=== PATIENT | female | born 1985 | race Caucasian/White ===

== ENCOUNTER 2017-05-19 19:30 | Emergency (ER) | payer MEDICAID ==
[~2017-05-19] VITALS: Ht 160 cm; Wt 89.8 kg
--- NOTE | 2017-05-19 20:35 | NUR ---
Patient to ER bed 4 to gown for evaluation. Side rails up. Report given to EMILIE.
--- NOTE | 2017-05-19 20:36 | NUR ---
Patient AAO x 4, 25 weeks , presented to ED c/o cough and wheezing x 1 day. Patient afebrile. Patient denies chest pain, N&V. FHR 156. Patient VSS. Will continue to monitor.
--- NOTE | 2017-05-19 20:40 | NUR ---
JORDYN Mccullough at bedside examining patient.
[2017-05-19] MEDS ORDERED: IPRATROPIUM/ALBUTEROL SULFATE 3 ML AMPUL.NEB INH ONE (20:45)
--- NOTE | 2017-05-19 21:40 | NUR ---
Patient sitting in bed. Patient states she is relieved after breathing treatment. No SOB or acute distress noted. Will continue to monitor.
--- NOTE | 2017-05-19 22:04 | NUR ---
Patient given written and verbal discharge instructions and verbalizes understanding. ER MD discussed with patient the results and treatment provided. Patient in stable condition. ID arm band removed. Rx of Albuterol given. Patient educated on pain management and to follow up with PMD. Pain Scale 0/10. Opportunity for questions provided and answered. Medication side effect fact sheet provided.
== END 2017-05-19 22:04 | disposition home or self-care (01) ==
LOC: SED 19:30
DX: O99.512 Diseases of the respiratory system complicating pregnancy, second trimester (principal); J20.8 Acute bronchitis due to other specified organisms; Z3A.25 25 weeks gestation of pregnancy
CPT/HCPCS: 36415; 86710; 94640; 99284

== ENCOUNTER 2020-07-04 21:35 | Emergency (ER) | payer MEDICAID ==
[~2020-07-04] VITALS: Ht 157.5 cm; Wt 90.7 kg
[2020-07-04 21:52] VITALS: BP_SYST 129
[2020-07-04 22:48] LABS: BASOPHILS % (AUTO) 0.5 % (0.0-2.0); EOSINOPHILS # (AUTO) 0.4 K/uL (0.0-0.4); EOSINOPHILS % (AUTO) 6.9 % (0.0-4.0); HEMATOCRIT 38.5 % (36-48); LYMPHOCYTES % (AUTO) 31.5 % (20.5-51.5); MEAN CORPUSCULAR HEMOGLOBIN 31 pg (27-31); MEAN CORPUSCULAR HGB CONC 34 % (32-36); MEAN CORPUSCULAR VOLUME 93 fL (79.0-98.0); MONOCYTES # (AUTO) 0.5 K/uL (0.0-1.0); MONOCYTES % (AUTO) 7.1 % (1.7-9.3); NEUTROPHILS # (AUTO) 3.4 K/uL (1.8-7.7); PLATELET COUNT (AUTO) 179 K/uL (130-430); RED BLOOD CELL COUNT(AUTO) 4.13 MIL/uL (4.2-6.2); RED CELL DISTRIBUTION WIDTH 12.9 % (9.0-15.0); WHITE BLOOD COUNT (AUTO) 6.4 K/uL (4.8-10.8)
[2020-07-04] MEDS ORDERED: KETOROLAC TROMETHAMINE 60 MG/2 ML VIAL IM ONE (23:00)
[2020-07-04 23:05] LABS: CALCIUM 9.2 mg/dL (8.4-11.0); CREATININE 0.9 mg/dL (0.55-1.30); POTASSIUM 3.6 mmol/L (3.5-5.1)
[2020-07-04 23:15] LABS: BILIRUBIN,URINE NEGATIVE (NEGATIVE); BLOOD, URINE NEGATIVE (NEGATIVE); CLARITY/URINE CLEAR (CLEAR); COLOR,URINE YELLOW (YELLOW); GLUCOSE,URINE NEGATIVE (NEGATIVE); KETONES,URINE NEGATIVE (NEGATIVE); LEUKOCYTE ESTERASE ,URINE NEGATIVE (NEGATIVE); NITRITE, URINE NEGATIVE (NEGATIVE); PH,URINE 5.5 (5.0-8.0); PROTEIN URINE NEGATIVE (NEGATIVE); UROBILINOGEN,URINE 0.2 (0.2-1.0)
[2020-07-04 23:18] LABS: ALBUMIN 3.7 g/dL (3.4-4.8); TOTAL BILIRUBIN 0.8 mg/dL (0.0-1.0)
[2020-07-05] MEDS ORDERED: KETOROLAC TROMETHAMINE 30 MG VIAL IVP ONE
[2020-07-05] MEDS ORDERED: IBUP-1969 PO (01:45)
[2020-07-05 01:51] VITALS: BP_SYST 121
== END 2020-07-05 01:50 | disposition home or self-care (01) ==
LOC: SED 21:35
DX: R10.9 Unspecified abdominal pain (principal); E07.9 Disorder of thyroid, unspecified; J45.909 Unspecified asthma, uncomplicated
CPT/HCPCS: 36415; 74176; 76376; 80053; 81003; 81025; 83690; 84702; 85025; 96374; 99284; J1885